=== PATIENT | male | born 1945 | race Caucasian/White ===

== ENCOUNTER → 2017-03-11 | Outpatient (CLI) | payer BC, MEDICARE ==
--- NOTE | 2017-03-11 18:01 | REP ---
Low-dose lung cancer screening chest CT without contrast: History: 40 pack-year smoking history. Cough. Comparison CT study is from June 15, 2014. CT findings: There is a new 7 mm noncalcified pulmonary nodular density in the right mid lung zone on image number 54 of 120 of today's study. This is not visible on the June 20, 2014 prior study. It is surrounded by some ground-glass opacity and a halo light or volume averaging configuration. This may be on a near a pleural surface as it appears to be near the plane of the minor fissure. Right lung is otherwise unremarkable. On the left, there is old pleural parenchymal scarring in the lingula and there are two fibrotic nodular opacities along the major fissure in the left base, both of which are unchanged from the 2014 study. No left lung nodule or mass is seen. Impression: Positive screening lung cancer CT study with a 7 mm nodular neodensity in the right mid lung zone. Surrounding ground-glass opacity versus volume averaging pleural opacity. Pulmonary medicine evaluation suggested. Standard chest CT study with sagittal and coronal reformatted images should be considered. Follow-up CT study versus PET-CT may be warranted. Signed by Dannie Rivera MD 03/12/2017 09:24 A
== END ==
LOC: M RAD 11:01
PROVIDERS: ATTEND Family Medicine
DX: R05 Cough (principal); Z87.891 Personal history of nicotine dependence

== ENCOUNTER 2017-07-20 10:48 | Emergency (ER) | payer BC, MEDICARE ==
[~2017-07-20] VITALS: Ht 182.9 cm; Wt 120.0 kg
[2017-07-20] MEDS ORDERED: CORG20TA2 PO (11:07)
[2017-07-20] MEDS ORDERED: AMIT150T PO (11:07)
[2017-07-20] MEDS ORDERED: INSULADS INJ (11:08)
[2017-07-20] MEDS ORDERED: fentaNYL 100 MCG/2 ML INJECTION (J3010) IV ONE (11:30)
[2017-07-20] MEDS ORDERED: ONDANSETRON 4 MG ORAL DISINTEGRATING TAB (S0181) PO ONE (11:30)
[2017-07-20 11:58] LABS: BASO # 0.1 10^3/uL (0.0-0.2); BASO % 0.7 % (0.0-1.0); EOS # 0.2 10^3/uL (0.0-0.50); EOS % 1.9 % (0.0-3.0); IMMATURE GRANULOCYTE % 0.2 % (0-0); LYMPH # 4.1 10^3/uL (1.5-4.5); LYMPH % 36.4 % (24.0-44.0); MEAN CORPUSCULAR HEMOGLOBIN 31.7 pg (27.0-33.0); MEAN CORPUSCULAR HGB CONC 34.2 g/dl (32.0-36.5); MEAN CORPUSCULAR VOLUME 92.7 fl (80.0-96.0); MONO # 0.9 10^3/uL (0.0-0.8); MONO % 7.9 % (0.0-5.0); NEUTROPHILS # 5.9 10^3/uL (1.8-7.7); NEUTROPHILS % 52.9 % (36.0-66.0); PLATELET COUNT, AUTOMATED 279 10^3/uL (150-450); RED CELL DISTRIBUTION WIDTH 12.5 % (11.5-14.5); WHITE BLOOD COUNT 11.1 10^3/uL (4.0-10.0)
[2017-07-20] MEDS ORDERED: MORPHINE 4 MG/ML 1ML SYRINGE IV ONE (12:15)
[2017-07-20 12:17] LABS: ANION GAP 7 MEQ/L (8-16); BLOOD UREA NITROGEN 9 MG/DL (7-18); CALCIUM LEVEL 8.8 MG/DL (8.8-10.2); CARBON DIOXIDE LEVEL 29 MEQ/L (21-32); CHLORIDE LEVEL 104 MEQ/L (98-107); CREATININE FOR GFR 0.91 MG/DL (0.70-1.30); GLOMERULAR FILTRATION RATE > 60.0 (>42); GLUCOSE, FASTING 95 MG/DL (83-110); POTASSIUM SERUM 3.6 MEQ/L (3.5-5.1); SODIUM LEVEL 140 MEQ/L (136-145)
[2017-07-20] MEDS ORDERED: NS 1,000 ML IV SCH (12:21)
[2017-07-20] MEDS ORDERED: LIDOCAINE 1% MDV 20ML VIAL SC ONE (12:45)
[2017-07-20] MEDS ORDERED: MORPHINE 2 MG/ML 1ML SYRINGE IV ONE (12:45)
--- NOTE | 2017-07-20 13:30 | REP ---
RIGHT ANKLE SERIES: Four views of the right ankle are performed. There is an oblique fracture of the distal fibula with moderate lateral displacement and angulation. There is a fracture of the posterior and likely medial malleolus of the distal tibia. That fragment is displaced. There is significant disruption of the ankle mortise with lateral displacement and angulation of the talus with respect to the distal tibia. Signed by Thierno Carrera MD 07/20/2017 05:37 P
[2017-07-20] MEDS ORDERED: ASPIRIN 325 MG TAB PO ONE (14:45)
[2017-07-20] MEDS ORDERED: ASPI325T PO (14:47)
[2017-07-20] MEDS ORDERED: ACET30TAB PO (14:48)
--- NOTE | 2017-07-20 15:01 | REP ---
RIGHT ANKLE: Four view of the right ankle are performed and compared to a prior exam this same day. Fracture of the distal fibula is noted with persistent lateral displacement, but resolution of the lateral angulation. Ankle mortise is relatively realigned. Fracture of the medial malleolus is present. There is an overlying cast. Signed by Thierno Carrera MD 07/20/2017 05:40 P
[2017-07-20 15:23] VITALS: BP 127/69
--- NOTE | 2017-07-20 20:28 | CR ---
DATE OF CONSULTATION: 07/20/2017 INDICATION: Right ankle fracture dislocation. HISTORY OF PRESENT ILLNESS: Jeremy is a very pleasant 72-year-old gentleman with chronic obstructive pulmonary disease (COPD) and diabetes who sustained a mechanical fall in his house 3 days ago. He lives alone but has an aide that checks on him four times a day. Patient, after falling, was able to get into bed, where he laid there for 6 hours before the aide came. Patient was advised to go to the hospital, but was too tired and wanted to see if it would get better. I believe it was 3, possibly 2 days ago, date of injury. He reported significant diffuse ankle pain, no numbness. He denies peripheral neuropathy from his diabetes. Patient rates his pain at 6/10 on a pain scale and describes it as throbbing. It was improved with a dose of morphine. Worse with movement. PAST MEDICAL HISTORY: Positive for insulin-dependent diabetes and COPD. He does not use home oxygen. PAST SURGICAL HISTORY: Denies. MEDICATIONS: - inhaler - insulin ALLERGIES: No known drug allergies. SOCIAL HISTORY: Patient lives alone. He is a cane ambulator. All of his family is in [place]. He used to smoke, no longer smokes. Does not abuse alcohol. REVIEW OF SYSTEMS: Patient denies neurologic, cardiac, pulmonary, abdominal symptoms. Musculoskeletal symptoms as above. Exam reveals an elderly gentleman in no distress. Alert and oriented times three. NEUROLOGIC: Appropriate mood and affect. CARDIOVASCULAR: 2+ posterior tibial (PT) pulse with a regular rate. PULMONARY: Regular nonlabored breathing. Abdomen: Soft, nontender. SKIN: Skin in the right ankle reveals a small fracture blister over the anterolateral ankle. There is blanching of the medial skin with firmness deep to that where the medial malleolar fragment is pushing on the skin. No open wound, no open fracture. There is diffuse moderate ecchymosis. The swelling is moderate, but the skin does not wrinkle. Calf is soft and nontender. He has an abrasion over the distal patella, but had painless knee range of motion once the cast was in place. Knee is nontender. He wiggles his toes. Sensation to light touch is grossly intact. Nontender in the midfoot. RADIOLOGY: Three views of right ankle obtained and available for my review. There is a fracture subluxation of the right ankle with disruption of the mortise and a very long oblique prasad C type distal fibula fracture. There is a moderate sized medial malleolar fragment. Small posterior malleolar fragment. ASSESSMENT AND PLAN: Jeremy is a 72-year-old gentleman with a right ankle fracture dislocation. I explained that this is an operative injury. We also discussed that diabetics do better with operative management for this type of ankle fracture as long as he does not get a complication. He is too swollen to perform open reduction internal fixation (ORIF) today. I have recommended closed reduction and ankle block in the emergency room (ER) and if alignment is satisfactory, outpatient followup with my , Dr. Ibrahim, for definitive management. Patient agreed. The risks and benefits of ankle block and closed reduction were discussed and consent obtained. PROCEDURE NOTE: The right ankle was sterilely prepped with Betadine and then I injected 10 mL of 1% lidocaine without epinephrine using a 22 gauge needle just medial to the tibialis anterior tendon. He tolerated that well. Within 5 minutes he had excellent analgesia. I then performed a closed reduction with manipulation by pulling the heel anterior and a Andre's type maneuver. The ankle was felt to slide back into place. This also got tension off the medial malleolus. I then applied a very well padded short leg fiberglass cast with a Andre's mold to maintain that reduction. Postreduction x-rays were obtained, four views of the ankle, showing a successful near anatomic closed reduction with a restored mortise. Posterior malleolar fragment is small, we do not need a CT scan. The patient is non-weightbearing on the right lower extremity, must keep his cast clean, dry, and intact. He has a walker at home which he needs to use. The patient feels comfortable going home from the emergency room (ER) and will have his aide come in about five times a day. Tylenol with Codeine for pain relief and he will take a full dose aspirin for deep venous thrombosis (DVT) prophylaxis. He was warned to call the office sooner if he feels that his cast is digging in. He will followup with Dr. Ibrahim on Friday, so in 2 days, to discuss surgery and get consent with a tentative plan for open reduction internal fixation (ORIF) the Friday or Friday after Thanksgiving. The patient has expressed understanding with this plan.
--- NOTE | 2017-07-20 21:43 | ECGEPIP ---
Stationary ECG Study [facility] - ED Test Date: 2017-07-20 Pat Name: PARESH LOMBARDO Department: Room: - Gender: M Real Estate Administrator: EVELIN : 1945 Requested By: JAMEY Villegas Order Number: [id number] Reading MD: Lolis Darby Measurements Intervals [place] Rate: 95 P: 12 ND: 191 QRS: -21 QRSD: 98 T: 59 QT: 346 QTc: 435 Interpretive Statements SINUS RHYTHM BORDERLINE LEFT AXIS DEVIATION MINIMAL VOLTAGE CRITERIA FOR LVH, CONSIDER NORMAL VARIANT NONSPECIFIC T-WAVE ABNORMALITY NO PRIOR FOR COMPARISON Electronically Signed On 07-20-2017 21:43:37 EST by Lolis Darby
[2017-07-23] MEDS ORDERED: PAXI20TA29 PO (09:36)
[2017-07-23] MEDS ORDERED: HUMALOG 70/30 SQ (09:50)
[2017-07-23] MEDS ORDERED: SYMB16INH INH (09:50)
== END 2017-07-20 15:25 | disposition home or self-care (01) ==
LOC: M ED 10:48 → EDBD 10:48 → M ED 15:25
DX: S82.51XA Displaced fracture of medial malleolus of right tibia, initial encounter for closed fracture (principal); E11.9 Type 2 diabetes mellitus without complications; Z79.4 Long term (current) use of insulin; Z87.891 Personal history of nicotine dependence; W01.198A Fall on same level from slipping, tripping and stumbling with subsequent striking against other object, initial encounter; Y92.099 Unspecified place in other non-institutional residence as the place of occurrence of the external cause; Y93.01 Activity, walking, marching and hiking; Y99.9 Unspecified external cause status
CPT/HCPCS: 27818; 73610; 80048; 85025; 93005; 96374; 96375; 96376; 99284; J3010

== ENCOUNTER 2017-07-28 05:49 | Inpatient (IN) | payer BC, MEDICARE ==
[~2017-07-28] VITALS: Ht 182.9 cm; Wt 117.9 kg
[2017-07-28] VITALS (7 sets, daily range): BP systolic 120–138; BP diastolic 60–81
[~2017-07-28 05:49] MED LIST: ACET30TAB PO; AMIT150T PO; ASPI325T PO; CORG20TA2 PO; HUMALOG 70/30 SQ; INSULADS INJ; PAXI20TA29 PO; SYMB16INH INH
[2017-07-28] MEDS ORDERED: ROPIvacaine 0.5% 30 ML INJECTION (J2795) ONE (05:50)
[2017-07-28] MEDS ORDERED: dexameTHASONE 10 MG/1 ML VIAL PRES.FREE (J1100) ONE (05:50)
[2017-07-28] MEDS ORDERED: LIDOCAINE 1% MDV 20ML VIAL SQ PRN (06:00)
[2017-07-28] MEDS ORDERED: ASPI1TAB PO (06:40)
[2017-07-28] MEDS ORDERED: LR 1,000 ML IV SCH ×2 (07:15→13:15)
[2017-07-28] MEDS ORDERED: fentaNYL 100 MCG/2 ML INJECTION (J3010) As Ordered ONE ×2 (08:43→09:26)
[2017-07-28] MEDS ORDERED: MIDAZOLAM INJ 2 MG/2 ML VIAL (J2250) As Ordered ONE ×2 (08:43→13:03)
[2017-07-28] MEDS ORDERED: ceFAZolin 1GM INJ (J0690) As Ordered ONE (09:19)
[2017-07-28] MEDS ORDERED: PROPOFOL 200 MG/20 ML VIAL As Ordered ONE (09:26)
[2017-07-28] MEDS ORDERED: LIDOCAINE 2% INJ 100 MG/5 ML SDV (FOR ANES.) As Ordered ONE (09:26)
[2017-07-28] MEDS ORDERED: PHENYLephrine HCL 500 MCG/5 ML (100MCG/ML) SYRINGE (J2370) As Ordered ONE (10:16)
[2017-07-28] MEDS ORDERED: ePHEDrine SULFATE 25 MG/5 ML(5MG/ML) SYRINGE As Ordered ONE ×2 (10:16→11:20)
[2017-07-28] MEDS ORDERED: ROCURONIUM BROMIDE 50 MG/5 ML VIAL As Ordered ONE ×2 (10:17→11:08)
[2017-07-28] MEDS ORDERED: dexameTHASONE 4 MG/ML 1ML VIAL (J1100) As Ordered ONE (10:17)
[2017-07-28] MEDS ORDERED: ONDANSETRON 4MG/2ML VIAL (J2405) As Ordered ONE (10:17)
[2017-07-28] MEDS ORDERED: PHENYLEPHRINE INJ 10MG/ML VIAL (J2370) As Ordered ONE (10:41)
[2017-07-28] MEDS ORDERED: GLYCOPYRROLATE INJ 0.2 MG/ML 2 ML VIAL As Ordered ONE (11:19)
[2017-07-28] MEDS ORDERED: NEOSTIGMINE 10 MG/10 ML VIAL (J2710) As Ordered ONE (11:19)
[2017-07-28] MEDS ORDERED: HYDROmorphone HCL 2 MG/ML 1ML VIAL (J1170) As Ordered ONE (11:19)
[2017-07-28] MEDS ORDERED: BUPIVACAINE HCL 0.5% 30 ML VIAL As Ordered ONE (12:00)
[2017-07-28] MEDS ORDERED: DEXTROSE 50% 50 ML VIAL As Ordered ONE (12:30)
[2017-07-28] MEDS ORDERED: DEXTROSE 50% 50 ML SYRINGE As Ordered ONE (12:31)
--- NOTE | 2017-07-28 13:09 | REP ---
Clinical: Status post open reduction and fixation. Technique: For operative fluoroscopic imaging. Findings: Multiple intraoperative fluoroscopic images demonstrate the patient to be status post open reduction and fixation with compression plate and screws noted along the distal fibula. Satisfactory reduction to the fibular fracture noted continued evidence for medial and posterior malleolar fractures. Total fluoroscopic time 90 seconds. Impression: Status post open reduction and fixation as described above. Signed by Pravin Akins MD 07/28/2017 01:00 P
[2017-07-28] MEDS ORDERED: PERCOCET 5MG/325MG TAB PO PRN (13:15)
[2017-07-28] MEDS ORDERED: ONDANSETRON 4MG/2ML VIAL (J2405) IV PRN (13:15)
[2017-07-28] MEDS: LR 1,000 ML IV SCH (13:15)
[2017-07-28] MEDS ORDERED: fentaNYL 100 MCG/2 ML INJECTION (J3010) IV PRN (13:15)
[2017-07-28] MEDS ORDERED: MORPHINE 2 MG/ML 1ML SYRINGE IV PRN (13:30)
[2017-07-28] MEDS ORDERED: FLEET ENEMA PR PRN (13:30)
[2017-07-28] MEDS ORDERED: HumaLOG INSULIN (NovoLOG) PER UNIT SC SCH ×2 (14:00→21:00)
[2017-07-28] MEDS: ACETAMINOPHEN 500 MG TAB PO SCH ×2 (14:00→21:33)
--- NOTE | 2017-07-28 15:30 | RO ---
DATE OF PROCEDURE: 07/28/2017DATE OF PROCEDURE: PREPROCEDURE DIAGNOSIS: Right displaced trimalleolar ankle fracture. POSTPROCEDURE DIAGNOSIS: Right displaced trimalleolar ankle fracture. PROCEDURE: Open reduction internal fixation right ankle SURGEON: Dr. Maryann Giles TRUCK [employer]OP MECHANIC: Angel Espinosa PA-C. ANESTHESIA: General endotracheal. ESTIMATED BLOOD LOSS: 25 mL. COMPLICATIONS: None. IMPLANTS: Synthes 11-hole distal fibular locking plate with associated 2.7 mm locking and 3.5 mm cortical screws and two 4.0 mm syndesmotic screws. INDICATION: Jeremy Lucio is a 72-year-old male with insulin dependent diabetes who sustained a fall resulting in a displaced trimalleolar ankle fracture. The patient had significant swelling and was initially placed into a cast after reduction of the ankle fracture was performed. He presents today for definitive fixation of his ankle fracture. Risks and benefits of surgery were discussed with the patient in detail. The patient understands he has an increased of complications given his insulin dependent diabetes. These risks include but are not limited to infection, deep venous thrombosis/pulmonary embolus, hardware failure, damage to nerves or surrounding blood vessels, need for additional procedures. Informed consent was obtained in the office prior to the procedure. DESCRIPTION OF PROCEDURE: The patient was met in the preoperative holding area where his cast was taken down to ensure his skin and soft tissue envelop was in adequate condition for surgery. His soft tissue swelling had decreased significantly and there were no fracture blisters in the area of the distal fibular incision. His right lower extremity was marked at the correct operative site. He was then taken to the operating room where he was transferred in the supine position on the operating room table. His bony prominences were well padded. He underwent general anesthesia.. At this point, a sterile tourniquet was applied to the mid portion of the patient's right thigh. A bump was placed under the ipsilateral hip. A Chlorhexidine scrub was performed over the operative extremity. The right lower extremity was then prepped and draped in the normal sterile fashion. An official time-out was held with the patient's identification and surgery was once again confirmed. The limb was exsanguinated and tourniquet was inflated to 250mmHg. An incision was marked out over the posterolateral region of the distal fibula. This extended quite proximally as the fracture was a long spiral fracture extending to the mid fibula. The skin was incised with a 15 blade and thick flaps were developed distally. Proximal to this, careful blunt dissection with scissors was performed to avoid the superficial peroneal nerve. The fibular fracture was identified and exposed using a Padilla elevator and careful finger dissection. The fracture was debrided of any hematoma and periosteum. Once the fracture had been adequately debrided it was irrigated copiously with normal saline. The incision was extended a small amount to have room for the plate to reach proximally past the fracture site. Next, reduction of the fracture was performed using a series of reduction clamps. Reduction was confirmed in AP, lateral, and mortise views. When I was satisfied with the reduction, two 3.5 mm lag screws were placed across the fracture site. I had excellent compression and bite with these screws. Next, an 11-hole distal fibular walking plate was selected. This was the longest plate we had and the only one that would allow me to surpass the fracture site with three screws. Given the patient is diabetic, I wanted to ensure that we had adequate fixation for him. The plate was placed on the lateral aspect of the fibula where it fit nicely. It was held in place with two K-wires. Placement of the plate was confirmed on multiple fluoroscopic views. The plate was then secured using a 3.5 mm cortical screw. Four 2.7 mm locking screws were placed distally to further secure the plate. 3.5 mm screws were placed proximally above the fracture. At this point, multiple x-rays were taken to confirm reduction and adequate hardware placement. I was satisfied with the AP, lateral and mortise views. At this point, I did stress the fibula under live fluoroscopy. It did not open medially to any significant extent. However, given the insulin dependent diabetes, I did place two 4.0 mm syndesmotic screws. These were placed with the foot in dorsiflexion with just gentle compression of the fibula against the tibia. After placement of the screws, final x-rays were taken and I was satisfied with the reduction and hardware placement of the distal fibular fracture. At this point, the decision was made to not fix the anterior caliculus piece given it is quite small and not contributing to the overall structural stability of the patient's ankle. The wound was copiously irrigated and deep tissues were closed using #2-0 Vicryl distally over the plate. The subcutaneous tissues were closed using 3-0 Vicryl. The skin was closed using horizontal mattress suture using #3-0 Vicryl. The tourniquet was let down and there was not any significant bleeding. Approximately 10 mL of 0.5% Marcaine were injected in the area of the incision. Xeroform was placed over the wound and a well-padded splint was applied. The patient awoke from general anesthesia without difficulty. He was transferred to the PACU in stable condition. He was able to grossly wiggle his toes and had normal sensation to light touch in the superficial peroneal, deep peroneal and tibila distribution upon awakening. PLAN: The patient will be non-weightbearing in his right lower extremity. He will be admitted for observation and 24 hours of IV antibiotics. He will need to be non-weightbearing for a minimum of 6-8 weeks. He will be on aspirin for deep venous thrombosis prophylaxis. VIRGILIO
[2017-07-28] MEDS ORDERED: oxyCODONE 5MG TAB PO PRN ×2 (16:45)
[2017-07-28] MEDS: SYMBICORT 160/4.5MCG INHALER 6GM INH SCH (19:48)
[2017-07-28] MEDS: ASPIRIN 325 MG TAB PO SCH (21:33)
[2017-07-29] MEDS: LR 1,000 ML IV SCH (00:22)
[2017-07-29 02:00] VITALS: BP 125/73
[2017-07-29] MEDS: ACETAMINOPHEN 500 MG TAB PO SCH ×3 (05:39→21:33)
[2017-07-29 06:00] VITALS: BP 128/74
[2017-07-29] MEDS: SYMBICORT 160/4.5MCG INHALER 6GM INH SCH ×2 (07:28→20:21)
[2017-07-29] MEDS: HumaLOG INSULIN (NovoLOG) PER UNIT SC SCH ×3 (07:30→17:41)
[2017-07-29] MEDS: ASPIRIN 325 MG TAB PO SCH ×2 (08:51→21:34)
[2017-07-29] MEDS: PARoxetine 20 MG TAB PO SCH (08:51)
[2017-07-29] MEDS: VITAMIN D 1,000 INTERNATIONAL UNITS TABLET PO SCH (08:51)
[2017-07-29 14:00] VITALS: BP 126/66
[2017-07-29] MEDS ORDERED: AMITRIPTYLINE 50 MG TAB PO SCH (21:00)
[2017-07-29 21:57] VITALS: O2SAT 96
[2017-07-29 22:00] VITALS: BP 137/79
[2017-07-30] MEDS: ACETAMINOPHEN 500 MG TAB PO SCH (05:39)
[2017-07-30 06:00] VITALS: BP 138/78
[2017-07-30] MEDS: SYMBICORT 160/4.5MCG INHALER 6GM INH SCH (08:15)
[2017-07-30] MEDS: VITAMIN D 1,000 INTERNATIONAL UNITS TABLET PO SCH (08:54)
[2017-07-30] MEDS: PARoxetine 20 MG TAB PO SCH (08:54)
[2017-07-30] MEDS: HumaLOG INSULIN (NovoLOG) PER UNIT SC SCH (08:54)
[2017-07-30] MEDS: ASPIRIN 325 MG TAB PO SCH (08:54)
== END 2017-07-30 12:05 | disposition home or self-care (01) | DRG 313 ==
LOC: M SDC 05:49 → M MS5PR 14:47 → M SDC 07-29 08:00 → M MS5PR 07-29 08:01
PROVIDERS: ADMIT Orthopaedic Surgery; ATTEND Orthopaedic Surgery
PROC: 0QSJ04Z Reposition Right Fibula with Internal Fixation Device, Open Approach (ICD-10-PCS; principal; 2017-07-28 07:30)
DX: S82.851A Displaced trimalleolar fracture of right lower leg, initial encounter for closed fracture (principal); I10 Essential (primary) hypertension; E11.9 Type 2 diabetes mellitus without complications; Z79.4 Long term (current) use of insulin; Z79.899 Other long term (current) drug therapy; W18.30XA Fall on same level, unspecified, initial encounter; Y92.009 Unspecified place in unspecified non-institutional (private) residence as the place of occurrence of the external cause

== ENCOUNTER → 2017-09-30 | Outpatient (REF) | payer BC, MEDICARE ==
[2017-09-30 14:02] LABS: INFLUENZA A AMPLIFICATION POSITIVE (NEGATIVE); INFLUENZA B AMPLIFICATION NEGATIVE (NEGATIVE); RSV AMPLIFICATION NEGATIVE (NEGATIVE)
== END ==
LOC: M LAB REF 12:38
DX: J11.1 Influenza due to unidentified influenza virus with other respiratory manifestations (principal)
CPT/HCPCS: 87631

== ENCOUNTER → 2020-08-09 | Outpatient (CLI) | payer SELFPAY ==
[~2020-08-09] MED LIST changes: +ACET-716 PO; -ACET30TAB PO; +ASPI-1 PO; -ASPI325T PO; +ASPI81TA26 PO
== END ==
LOC: M LABSMTC 11:53
PROVIDERS: ATTEND Pediatrics
DX: Z11.59 Encounter for screening for other viral diseases (principal)

== ENCOUNTER → 2023-10-24 | Outpatient (CLI) | payer MEDICARE, OTHER ==
[~2023-10-24] MED LIST changes: +ATOR1TAB21 PO; +HUMA75VL SQ; +INSULANT SQ; -PAXI20TA29 PO; +PAXI20TA30 PO; +TRAZ-252 PO; +TREL1AER INH
[2023-10-24 16:57] LABS: C REACTIVE PROTEIN QUANTITATIV < 0.40 MG/DL (<1.0)
[2023-10-24 16:59] LABS: RHEUMATOID FACTOR QUANT < 3.5 IU/ML (<14)
[2023-10-24 17:32] LABS: HEMOGLOBIN A1c 6.3 % (4.0-6.0)
== END ==
LOC: M WUC 11:18
PROVIDERS: ATTEND Family Medicine
DX: E11.9 Type 2 diabetes mellitus without complications (principal); M06.9 Rheumatoid arthritis, unspecified